=== PATIENT | female | born 1960 | race Caucasian/White ===

== ENCOUNTER → 2019-04-26 | Outpatient (REF) | payer OTHER ==
[2019-04-26 16:21] LABS: MALB URINE SIEMENS 10.9 MG/L
== END ==
LOC: M LAB REF 14:02
PROVIDERS: ATTEND Nurse Practitioner Family
DX: R73.03 Prediabetes (principal)

== ENCOUNTER → 2021-05-07 | Outpatient (REF) | payer OTHER | LOC: M LAB REF 17:12 | PROVIDERS: ATTEND Internal Medicine Endocrinology, Diabetes & Metabolism | DX: E04.1 Nontoxic single thyroid nodule (principal) ==